=== PATIENT | male | born 1990 | race Caucasian/White ===

== ENCOUNTER 2020-12-07 11:45 | Emergency (ER) | payer BC, OTHER ==
[2020-12-07] MEDS ORDERED: Lactated Ringers 1,000 ML IV ONE (12:38)
[2020-12-07] MEDS ORDERED: Diphtheria,Pertussis(Acell),Tetanus Vaccine 0.5 ML Syringe IM ONE (12:39)
--- NOTE | 2020-12-07 12:44 | EDM.PDOC ---
ED HPI GENERAL MEDICAL PROBLEM - General Chief Complaint: Head Injury Stated Complaint: FELL, HAS A OPEN WOUND ON HEAD Time Seen by Provider: 12/07/20 12:30 - History of Present Illness INITIAL COMMENTS - FREE TEXT/NARRATIVE: Patient presents to the emergency department complaining of head injury. Patient states he was drinking last night and fell sustained with head injury. No loss of consciousness. No vomiting. No change in thinking. Patient told nurse that he has palpitations. When I asked the patient the patient states that he does have intermittent palpitations but he has had this for a longstanding period of time. Patient told nurse that the patient had some symptoms that were new specifically today. head Pain Score (Numeric/FACES): 6 - Related Data Allergies Allergy/AdvReac Type Severity Reaction Status Date / Time No Known Allergies Allergy Verified 12/07/20 12:31 Home Meds: Home Meds . [No Known Home Meds] 12/07/20 [History] Past Medical History - Past Health History Medical/Surgical History: Denies Medical/Surgical History ED ROS GENERAL - Review of Systems Review Of Systems: See Below Constitutional: Denies: Fever, Chills Respiratory: Denies: Shortness of Breath, Cough Cardiovascular: Denies: Chest Pain GI/Abdominal: Denies: Abdominal Pain Musculoskeletal: Denies: Joint Pain Skin: Reports: Other (Laceration) Neurological: Reports: Headache Hematologic/Lymphatic: Reports: Other (head bleeding) ED EXAM, HEAD INJURY - Physical Exam Exam: See Below Text/Narrative:: CONSTITUTIONAL: well appearing in no acute distress SKIN: 7 cm laceration to the parietal occipital area of the head. HENT: Laceration. No midline cervical vertebral tenderness PULMONARY: clear to ausculation bilaterally. No rales, rhonchi, wheezing CARDIOVASCULAR: regular rate, No murmur, rubs, or gallops GASTROINTESTINAL: soft, nondistended, nontender NEUROLOGIC: normal speech, II-XII intact. light touch/5/5 power equal and symmetric in upper and lower extremities without deficit MUSCULOSKELETAL: no gross deformities, atraumatic PSYCHIATRIC: normal mood and affect ED LACERATION/WOUND & GREG PROC - Laceration/Wound Repair Other Lac/wound length in cm: 7 Appearance: Linear Anesthetic Type: Local Local Anesthesia - Lidocaine (Xylocaine): 1% Plain Local Anesthetic Volume: Other (10cc) Skin Prep: Saline Saline irrigation (cc's): 1,000 Exploration/Debridement/Repair: Wound Explored, Moderate Debridement Closed with: Sutures Suture Size: 3-0 # of Sutures: 7 Suture Type: Other (ethylon) Tetanus Status Addressed: Yes Complications: No #1 Interpretation Time: 12:43 EKG Interpretation Comments: 100, sinus tachycardia, minor J-point elevation with normal inflection point in inferior leads and precordial leads. No reciprocal changes. No delta wave, no QT prolongation, no hypertrophic cardiomyopathy, no definitive Brugada's no epsilon wave Course - Vital Signs Text/Narrative:: Patient presents with scalp laceration. This was wide and was not able to be stapled. This was approximated with 3-0 Ethilon sutures. Patient had no loss of consciousness or vomiting or change in thinking to warrant head imaging. He is not on blood thinners. No midline neck tenderness. There is some concern for palpitations but patient's laboratory work-up and EKG are otherwise unrevealing. Supportive care with return precautions and PCP follow-up with sut ure removal in 7 to 10 days Last Recorded V/S: Last Vital Signs Temp 36.6 C 12/07/20 12:10 Pulse 98 12/07/20 12:36 Resp 18 12/07/20 12:10 BP 143/82 H 12/07/20 12:36 Pulse Ox 98 12/07/20 12:36 - Orders/Labs/Meds Orders: Active Orders 24 hr Category Date Time Status Vaccines to be Administered [RC] PER UNIT ROUTINE Care 12/07/20 12:39 Active Labs: Laboratory Tests 12/07/20 12/07/20 Range/Units 12:30 13:00 WBC 12.87 H (4.0-11.0) K/uL RBC 5.37 (4.50-5.90) M/uL Hgb 17.3 H (13.0-17.0) g/dL Hct 49.8 (38.0-50.0) % MCV 92.7 (80.0-98.0) fL MCH 32.2 H (27.0-32.0) pg MCHC 34.7 (31.0-37.0) g/dL RDW Std Deviation 48.8 (28.0-62.0) fl RDW Coeff of Otto 14 (11.0-15.0) % Plt Count 297 (150-400) K/uL MPV 9.60 (7.40-12.00) fL Neut % (Auto) 70.4 (48.0-80.0) % Lymph % (Auto) 16.9 (16.0-40.0) % Bennett % (Auto) 10.8 (0.0-15.0) % Eos % (Auto) 1.7 (0.0-7.0) % Baso % (Auto) 0.2 (0.0-1.5) % Neut # (Auto) 9.1 H (1.4-5.7) K/uL Lymph # (Auto) 2.2 (0.6-2.4) K/uL Bennett # (Auto) 1.4 H (0.0-0.8) K/uL Eos # (Auto) 0.2 (0.0-0.7) K/uL Baso # (Auto) 0.0 (0.0-0.1) K/uL Nucleated RBC % 0.0 /100WBC Nucleated RBCs # 0 K/uL Sodium 137 (136-148) mmol/L Potassium 4.4 (3.5-5.1) mmol/L Chloride 102 (98-107) mmol/L Carbon Dioxide 27.1 (21.0-32.0) mmol/L BUN 12 (7.0-18.0) mg/dL Creatinine 1.3 (0.8-1.3) mg/dL Est Cr Clr Drug Dosing 88.49 mL/min Estimated GFR (MDRD) > 60.0 ml/min Glucose 90 (74-106) mg/dL Calcium 8.7 (8.5-10.1) mg/dL Total Bilirubin 0.5 (0.2-1.0) mg/dL AST 41 H (15-37) IU/L ALT 48 (14-63) IU/L Alkaline Phosphatase 86 (46-116) U/L Troponin I < 0.050 (0.000-0.056) ng/mL Total Protein 7.6 (6.4-8.2) g/dL Albumin 4.1 (3.4-5.0) g/dL Globulin 3.5 (2.6-4.0) g/dL Albumin/Globulin Ratio 1.2 (0.9-1.6) Meds: Medications Discontinued Medications Generic Name Dose Route Start Last Admin Trade Name Bill PRN Reason Stop Dose Admin Diphtheria/Tetanus/Acell Pertussis 0.5 ml 12/07/20 12:39 12/07/20 12:54 Diphtheria,Pertussis(Acell),Tetanus Vaccine 0.5 Ml Syringe IM 12/07/20 12:40 0.5 ml .ONCE ONE Administration Lactated Ringer's 1,000 mls @ 999 mls/hr 12/07/20 12:38 12/07/20 12:56 Ringers, Lactated IV 12/07/20 13:38 999 mls/hr .BOLUS ONE Administration Lidocaine HCl 10 ml 12/07/20 13:37 12/07/20 13:41 Lidocaine 1% 5 Ml Sdv INJECT 12/07/20 13:38 10 ml ONETIME ONE Administration Departure - Departure Time of Disposition: 14:06 Disposition: Home, Self-Care 01 Condition: Good Clinical Impression: Scalp laceration - Discharge Information Instructions: Laceration Care, Adult Referrals: PCP,None [Primary Care Provider] - Forms: ED Department Discharge Additional Instructions: Return for redness, discharge, fever, increased pain or swelling to the area, vomiting, change in thinking, change or worsening condition. Have sutures removed in 7 to 10 days. The following information is given to patients seen in the emergency department who are being discharged to home. This information is to outline your options for follow-up care. We provide all patients seen in our emergency department with a follow-up referral. The need for follow-up, as well as the timing and circumstances, are variable depending upon the specifics of your emergency department visit. If you don't have a primary care physician on staff, we will provide you with a referral. We always advise you to contact your personal physician following an emergency department visit to inform them of the circumstance of the visit and for follow-up with them and/or the need for any referrals to a consulting specialist. The emergency department will also refer you to a specialist when appropriate. This referral assures that you have the opportunity for follow-up care with a specialist. All of these measure are taken in an effort to provide you with optimal care, which includes your follow-up. Primary care clinics in the area: [facility] [address] [place] [address] [facility] [address] [place] [address] Under all circumstances we always encourage you to contact your private physician who remains a resource for coordinating your care. When calling for follow-up care, please make the office aware that this follow-up is from your recent emergency room visit. If for any reason you are refused follow-up, please contact the [facility] at and asked to speak to the emergency department charge nurse. Sepsis Event Note (ED) - Evaluation Sepsis Screening Result: No Definite Risk - Focused Exam Vital Signs: Vital Signs Temp Pulse Resp BP Pulse Ox 12/07/20 12:36 98 143/82 H 98 12/07/20 12:10 36.6 C 122 H 18 138/82 99 - My Orders Last 24 Hours: My Active Orders 12/07/20 12:39 Vaccines to be Administered [RC] PER UNIT ROUTINE - Assessment/Plan Last 24 Hours: My Active Orders 12/07/20 12:39 Vaccines to be Administered [RC] PER UNIT ROUTINE
[2020-12-07 13:28] LABS: BLOOD UREA NITROGEN,BUN 12 mg/dL (7.0-18.0); CARBON DIOXIDE,CO2 27.1 mmol/L (21.0-32.0); CHLORIDE,CL 102 mmol/L (98-107); GLUCOSE RANDOM 90 mg/dL (74-106); POTASSIUM,K 4.4 mmol/L (3.5-5.1); SODIUM,NA 137 mmol/L (136-148)
== END 2020-12-07 14:20 | disposition home or self-care (01) ==
LOC: MW.ED 11:45
DX: S01.01XA Laceration without foreign body of scalp, initial encounter (principal); W18.39XA Other fall on same level, initial encounter; Z23 Encounter for immunization
CPT/HCPCS: 12002; 80053; 84484; 85025; 90471; 90715; 93005; 99283; J7120; 12004; 93010